=== PATIENT | male | born 1965 | race Caucasian/White ===

== ENCOUNTER 2017-10-21 20:45 | Emergency (ER) | payer OTHER ==
[~2017-10-21] VITALS: Ht 147.3 cm; Wt 54.4 kg
[2017-10-21] MEDS ORDERED: PANADOL EXTRA500 MG (21:16)
[2017-10-22] MEDS ORDERED: ANUSOL-HC25 MG RECTAL (07:57)
== END 2017-10-22 13:02 | disposition home or self-care (01) ==
LOC: ER 20:45
DX: K64.8 Other hemorrhoids (principal); R10.84 Generalized abdominal pain

== ENCOUNTER 2018-07-20 19:12 | Emergency (ER) | payer OTHER ==
[~2018-07-20] VITALS: Ht 121.9 cm; Wt 59.0 kg
[~2018-07-20 19:12] MED LIST: ANUSOL-HC25 MG RECTAL; PANADOL EXTRA500 MG
== END 2018-07-21 10:31 | disposition home or self-care (01) ==
LOC: ER 19:12
DX: K80.20 Calculus of gallbladder without cholecystitis without obstruction (principal)

== ENCOUNTER → 2019-01-30 | Emergency (ER) | payer OTHER ==
[~2019-01-30] VITALS: Ht 162.6 cm; Wt 54.4 kg
== END | disposition home or self-care (01) ==
LOC: ER 17:28
DX: S82.392A Other fracture of lower end of left tibia, initial encounter for closed fracture (principal); W22.8XXA Striking against or struck by other objects, initial encounter; Y93.89 Activity, other specified; Y92.098 Other place in other non-institutional residence as the place of occurrence of the external cause; Y99.8 Other external cause status